=== PATIENT | male | born 1980 | race Caucasian/White ===

== ENCOUNTER 2018-12-16 14:52 | Emergency (ER) | payer SELFPAY ==
[~2018-12-16] VITALS: Ht 182.9 cm; Wt 86.0 kg
[2018-12-16] MEDS ORDERED: ONDANSETRON 4MG ODT PO ONE (15:15)
[2018-12-16] MEDS ORDERED: KETOROLAC 15MG/ML VIAL IV ONE (15:15)
[2018-12-16 19:05] VITALS: BP 124/68
== END 2018-12-16 19:13 | disposition home or self-care (01) ==
LOC: ER 15:03
DX: S83.8X2A Sprain of other specified parts of left knee, initial encounter (principal); Y93.67 Activity, basketball; X58.XXXA Exposure to other specified factors, initial encounter; Y92.89 Other specified places as the place of occurrence of the external cause
CPT/HCPCS: 73560; 96374; 99283; J1885; L1830; Q0162; Z7610